=== PATIENT | female | born 1995 | race Caucasian/White ===

== ENCOUNTER 2016-07-19 12:34 | Emergency (ER) | payer BC ==
[2016-07-19 12:06] LABS: URINE APPEARANCE HAZY; URINE BILIRUBIN NEG (NEG); URINE BLOOD NEG (NEG); URINE COLOR YELLOW; URINE GLUCOSE NEG (NORM); URINE KETONE NEG (NEG); URINE LEUKOCYTE ESTERASE 1+ (NEG); URINE NITRATE NEG (NEG); URINE PROTEIN NEG (NEG); URINE SPECIFIC GRAVITY 1.015 (1.003-1.035); URINE UROBILINOGEN 0.2 MG/DL (NORM)
[2016-07-19 12:28] LABS: MICRO INDICATED? YES; URINE SOURCE CLEAN CATCH
[2016-07-19 12:30] LABS: CULTURE INDICATED? NO; URINE BACTERIA NEG (NEG); URINE CRYSTALS CALCIUM OXALATE /[HPF]; URINE RBC NEG /[HPF] (0-2); URINE SQUAMOUS EPITHELIAL CELL MANY /[HPF]
[2016-07-19 12:31] LABS: URINE AMORPHOUS SEDIMENT AMORP PHOSPHATES; URINE MUCUS PRESENT
[~2016-07-19 12:34] MED LIST: NO MEDICATIONS
== END 2016-07-19 12:48 | disposition home or self-care (01) ==
LOC: SED 12:34
PROVIDERS: Emergency Medicine
DX: N30.00 Acute cystitis without hematuria (principal); F17.200 Nicotine dependence, unspecified, uncomplicated; Z88.2 Allergy status to sulfonamides
CPT/HCPCS: 81003; 84703; 99284

== ENCOUNTER 2016-07-22 07:27 | Emergency (ER) | payer BC ==
--- NOTE | ~2016-07-22 | CT2 ---
[facility] A Service of [facility] RADIOLOGY TEXT RESULTS PATIENT: ANGEL FLORENTINO LOCATION: SED : 95 UNIT #: [id number] AGE: [address]: Morris Schuster MD SEX: F ORDER DR: [id number] [place] [id number] E MR#: [id number] Acc #: [id number] NAME: ANGEL FLORENTINO : 1995 SEX: F STUDY DATE/TIME: 07/22/2016 9:06 UNIT: SED ROOM: STUDY DESCRIPTION: CT Abd and Pelv W Cont Attending Physician: Morris Schuster M.D. Ordering Physician: Morris Schuster M.D. Primary Care Physician: Primary Care Physician No MEDICAL IMAGING REPORT This report is preliminary unless electronic signature is present. EXAM CT abdomen and pelvis INDICATION Left-sided abdominal pain. 3-day duration. Near-syncope. Urinary tract infection. TECHNIQUE CT of the abdomen and pelvis with p.o. and IV contrast (100 mL Isovue-370 IV contrast). Coronal and sagittal reconstructions were obtained. This CT examination was performed with one or more of the following radiation dose reduction techniques: automatic exposure control, adjustment of mA and/or kV according to patient size, and iterative reconstruction. COMPARISON None available. FINDINGS ABDOMEN: The liver is homogeneous. There is some mixed attenuation within the gallbladder lumen suggesting cholelithiasis, however this is not definitive. Pancreas, spleen, adrenal glands, and kidneys are within normal limits. No hydronephrosis. The bowel is not dilated. The appendix is normal. The abdominal aorta is normal in caliber. 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 PELVIS: There is a moderate volume of free fluid in the pelvis. The fluid is of low attenuation (8 Hounsfield units) indicating this is likely physiologic fluid. There is a tubular structure in the right adnexa which could represent an ovoid ovarian cyst or possibly a hydrosalpinx. Left ovary is within normal limits. No enlarged pelvic or inguinal lymph nodes. No acute osseous abnormalities. [facility] A Service of [facility] & [facility] RADIOLOGY TEXT RESULTS PATIENT: ANGEL FLORENTINO LOCATION: SED : 95 UNIT #: [id number] AGE: [address]: Morris Schuster MD SEX: F ORDER DR: IMPRESSION 1. Moderate volume of free fluid in the pelvis is likely physiologic. 2. Ovoid and somewhat tubular structure in the right adnexa may simply represent an ovoid follicular cyst, however, the possibility of a hydrosalpinx could also be considered. 3. Normal appendix. No hydronephrosis. Dictated by... Rah Wheeler M.D. THIS IS AN ELECTRONICALLY VERIFIED REPORT Rah Wheeler M.D. at 07/22/2016 12:37 PM TRISTA/corbin TD: 07/22/2016 12:18 JOB #: [id number] MEDICAL IMAGING REPORT Page 1 of 1
[2016-07-22 07:52] LABS: URINE SOURCE CLEAN CATCH
[2016-07-22 07:53] LABS: BASOPHIL# 0.1 X10e3 (0-0.3); BASOPHIL% 0.7 % (0-2.5); EOSINOPHIL# 0.1 X10e3 (0-0.7); HEMATOCRIT 39.7 % (35.0-45.0); HEMOGLOBIN 13.2 gm/dL (12.0-16.0); LYMPHOCYTE# 2.5 X10e3 (1.0-3.5); LYMPHOCYTE% 28.6 % (17.0-45.0); MEAN CELL VOLUME 86.2 FL (83-96); MEAN CORPUSCULAR HEMOGLOBIN 28.7 PG (28-34); MEAN CORPUSCULAR HGB CONC 33.4 g/dL (30-36); MEAN PLATELET VOLUME 8.2 FL (6.5-11.5); MONOCYTE# 0.7 X10e3 (0-1.0); MONOCYTE% 8.1 % (3.0-12.0); NEUTROPHIL# 5.4 X10e3 (1.5-7.1); NEUTROPHIL% 61.6 % (40-75); PLATELET COUNT 192 X10e3 (140-420); RED BLOOD COUNT 4.61 X10e (3.90-5.30); RED CELL DISTRIBUTION WIDTH 14.5 % (11.0-15.5); WHITE BLOOD COUNT 8.8 X10e3 (4.0-10.5)
[2016-07-22 07:54] LABS: URINE APPEARANCE CLEAR; URINE BILIRUBIN NEG (NEG); URINE BLOOD NEG (NEG); URINE COLOR YELLOW; URINE GLUCOSE NEG (NORM); URINE KETONE NEG (NEG); URINE LEUKOCYTE ESTERASE NEG (NEG); URINE NITRATE NEG (NEG); URINE SPECIFIC GRAVITY 1.025 (1.003-1.035); URINE UROBILINOGEN 0.2 MG/DL (NORM)
[2016-07-22 07:55] LABS: DIFF IND NO
[2016-07-22 07:58] LABS: MICRO INDICATED? NO; URINE PROTEIN NEG (NEG)
[2016-07-22 08:11] LABS: ALBUMIN SERUM 3.9 g/dL (3.5-5.0); BILIRUBIN, DIRECT 0.1 mg/dL (0.0-0.2); BILIRUBIN,INDIRECT 0.2 mg/dL (0.0-0.9); BILIRUBIN,TOTAL 0.3 mg/dL (0.2-2.0); BUN/CREATININE RATIO 22.85; CALCIUM SERUM 8.8 mg/dL (8.4-10.2); CREATININE SERUM 0.7 mg/dL (0.6-1.4); GLOM FILT RATE Estimated 123.9 mL/min (>60); POTASSIUM 3.5 mmol/L (3.5-5.1); PROTEIN TOTAL SERUM 7.2 g/dL (6.0-8.3)
[2016-07-22 08:12] LABS: AMPHETAMINE NEG (NEG); BARBITURATES NEG (NEG); BENZODIAZEPINES NEG (NEG); COCAINE NEG (NEG); MARIJUANA NEG (NEG); OPIATES NEG (NEG); TRICYCLIC ANTIDEPRESSANTS NEG (NEG); U METHADONE NEG (NEG)
== END 2016-07-22 11:17 | disposition home or self-care (01) ==
LOC: SED 07:27
PROVIDERS: Emergency Medicine
DX: N39.0 Urinary tract infection, site not specified (principal); F41.9 Anxiety disorder, unspecified; F17.210 Nicotine dependence, cigarettes, uncomplicated; H66.90 Otitis media, unspecified, unspecified ear
CPT/HCPCS: 36415; 74177; 80048; 80076; 80307; 81003; 82150; 83690; 84703; 85025; 96361; 96374; 96375; 99284; C9113; J1885; J2405; Q9967

== ENCOUNTER 2016-09-01 07:20 | Emergency (ER) | payer BC, OTHER ==
[2016-09-01 08:18] LABS: BASOPHIL% 0.4 % (0-2.5); DIFF IND NO; EOSINOPHIL# 0.1 X10e3 (0-0.7); EOSINOPHIL% 0.8 % (0.0-7.0); HEMATOCRIT 38.6 % (35.0-45.0); HEMOGLOBIN 13.1 gm/dL (12.0-16.0); LYMPHOCYTE# 3.4 X10e3 (1.0-3.5); LYMPHOCYTE% 40.9 % (17.0-45.0); MEAN CELL VOLUME 86.9 FL (83-96); MEAN CORPUSCULAR HEMOGLOBIN 29.4 PG (28-34); MEAN CORPUSCULAR HGB CONC 33.9 g/dL (30-36); MEAN PLATELET VOLUME 8.8 FL (6.5-11.5); MONOCYTE# 0.6 X10e3 (0-1.0); NEUTROPHIL# 4.2 X10e3 (1.5-7.1); NEUTROPHIL% 50.9 % (40-75); PLATELET COUNT 183 X10e3 (140-420); RED BLOOD COUNT 4.44 X10e (3.90-5.30); RED CELL DISTRIBUTION WIDTH 14.4 % (11.0-15.5); WHITE BLOOD COUNT 8.3 X10e3 (4.0-10.5)
[2016-09-01 08:34] LABS: ALBUMIN SERUM 3.9 g/dL (3.5-5.0); ALKALINE PHOSPHATASE 56 U/L (32-92); ALT (SGPT) 13 U/L (10-40); AST (SGOT) 16 U/L (10-42); BILIRUBIN,TOTAL 0.1 mg/dL (0.2-2.0); BLOOD UREA NITROGEN 12 mg/dL (9-23); CALCIUM SERUM 8.5 mg/dL (8.4-10.2); CARBON DIOXIDE 23 mmol/L (22-31); CHLORIDE 105 mmol/L (100-111); CREATININE SERUM 0.6 mg/dL (0.6-1.4); GLOM FILT RATE Estimated 130.3 mL/min (>60); GLUCOSE FASTING 90 mg/dL (70-110); LIPASE 32 U/L (22-51); POTASSIUM 3.4 mmol/L (3.5-5.1); PROTEIN TOTAL SERUM 6.9 g/dL (6.0-8.3); SODIUM 136 mmol/L (135-145)
[2016-09-01 08:36] LABS: BILIRUBIN, DIRECT <0.1 mg/dL (0.0-0.2)
[2016-09-01 09:06] LABS: URINE APPEARANCE HAZY; URINE BILIRUBIN NEG (NEG); URINE BLOOD 2+ (NEG); URINE COLOR YELLOW; URINE GLUCOSE NEG (NORM); URINE KETONE NEG (NEG); URINE LEUKOCYTE ESTERASE NEG (NEG); URINE NITRATE NEG (NEG); URINE PROTEIN TRACE (NEG); URINE SPECIFIC GRAVITY >=1.030 (1.003-1.035)
[2016-09-01 09:07] LABS: MICRO INDICATED? YES; URINE SOURCE CLEAN CATCH
[2016-09-01 09:13] LABS: CULTURE INDICATED? YES; URINE BACTERIA 1+ (NEG); URINE WBC 0-2 /[HPF] (0-5)
[2016-09-01 09:14] LABS: URINE AMORPHOUS SEDIMENT AMORP URATES; URINE CRYSTALS CALCIUM OXALATE /[HPF]; URINE MUCUS PRESENT; URINE SQUAMOUS EPITHELIAL CELL MODERATE /[HPF]
[2016-09-02 19:04] LABS: CHLAMYDIA TRACH Not Detected (Not Detected); N GONOR Not Detected (Not Detected)
== END 2016-09-01 09:23 | disposition home or self-care (01) ==
LOC: SED 07:20
PROVIDERS: Emergency Medicine
DX: R10.9 Unspecified abdominal pain (principal); Z88.2 Allergy status to sulfonamides; Z88.8 Allergy status to other drugs, medicaments and biological substances; F17.210 Nicotine dependence, cigarettes, uncomplicated
CPT/HCPCS: 36415; 80048; 80076; 81003; 83690; 84703; 85025; 87086; 87491; 87591; 87808; 87905; 96374; 99284; J1885

== ENCOUNTER 2016-11-07 06:31 | Emergency (ER) | payer BC, OTHER ==
[~2016-11-07] VITALS: Ht 172.7 cm; Wt 79.4 kg
--- NOTE | ~2016-11-07 | CT4 ---
[facility] A Service of [facility] RADIOLOGY TEXT RESULTS PATIENT: ANGEL FLORENTINO LOCATION: SED : 95 UNIT #: [id number] AGE: [address]: Morris Schuster MD SEX: F ORDER DR: [id number] [place] [id number] E MR#: [id number] Acc #: [id number] NAME: ANGEL FLORENTINO : 1995 SEX: F STUDY DATE/TIME: 11/07/2016 7:35 UNIT: SED ROOM: STUDY DESCRIPTION: CT Abd and Pelv Wo Cont Attending Physician: Morris Schuster M.D. Ordering Physician: Morris Schuster M.D. Primary Care Physician: No Primary Care Physician MEDICAL IMAGING REPORT This report is preliminary unless electronic signature is present. EXAM CT abdomen and pelvis without contrast INDICATIONS Low abdominal pain with nausea for [address] of the abdomen and pelvis performed without contrast. Coronal and sagittal reformatted images were obtained. This CT exam was performed with one or more of the following radiation dose reduction techniques: automatic exposure control, adjustment of mA and/or kV according to patient size, and iterative reconstruction. COMPARISON 07/22/2016 FINDINGS The lung bases are clear. The liver is unremarkable. The gallbladder and spleen are unremarkable. The kidneys are unremarkable. The adrenal glands are unremarkable. The pancreas is unremarkable. The patient has a left-sided IVC again noted that empties into the left renal vein and continues onward as a normal right-sided suprarenal IVC. PELVIS: The colon is unremarkable. The appendix is normal. There is no free fluid. The bone windows are unremarkable. IMPRESSION 1. There are no acute findings. There are no CT findings to explain the patient's symptoms. 2. Pelvic structures are unremarkable. The appendix is normal. Dictated by... [facility] A Service [facility] RADIOLOGY TEXT RESULTS PATIENT: ANGEL FLORENTINO LOCATION: SED : 95 UNIT #: [id number] AGE: [address]: Morris Schuster MD SEX: F ORDER DR: Yoav Mancia M.D. THIS IS AN ELECTRONICALLY VERIFIED REPORT Yoav Mancia M.D. at 11/09/2016 9:05 AM BILLY/yung TD: 11/07/2016 12:21 JOB #: [id number] MEDICAL IMAGING REPORT Page 1 of 1
[2016-11-07 07:02] LABS: URINE APPEARANCE CLEAR; URINE BILIRUBIN NEG (NEG); URINE BLOOD 2+ (NEG); URINE COLOR YELLOW; URINE GLUCOSE NEG (NORM); URINE KETONE NEG (NEG); URINE LEUKOCYTE ESTERASE TRACE (NEG); URINE NITRATE NEG (NEG); URINE PROTEIN NEG (NEG); URINE SOURCE CLEAN CATCH; URINE SPECIFIC GRAVITY 1.025 (1.003-1.035); URINE UROBILINOGEN 0.2 MG/DL (NORM)
[2016-11-07 07:03] LABS: MICRO INDICATED? YES
[2016-11-07 07:11] LABS: CULTURE INDICATED? NO; URINE BACTERIA NEG (NEG); URINE MUCUS PRESENT; URINE RBC 0-2 /[HPF] (0-2); URINE SQUAMOUS EPITHELIAL CELL OCCAS /[HPF]; URINE WBC 0-2 /[HPF] (0-5)
== END 2016-11-07 08:53 | disposition home or self-care (01) ==
LOC: SED 06:31
PROVIDERS: Emergency Medicine
DX: N39.0 Urinary tract infection, site not specified (principal); F17.210 Nicotine dependence, cigarettes, uncomplicated; Z79.2 Long term (current) use of antibiotics; Z98.890 Other specified postprocedural states
CPT/HCPCS: 74176; 81003; 84703; 99284; J1885